=== PATIENT | female | born 1990 | race Hispanic/Latino ===

== ENCOUNTER 2021-08-19 16:01 | Outpatient (CLI) | payer OTHER | END 2021-08-19 16:02 | disposition home or self-care (01) | LOC: ULT 16:01 | PROVIDERS: ATTEND Student in an Organized Health Care Education/Training Program | DX: M79.89 Other specified soft tissue disorders (principal) ==

== ENCOUNTER 2021-08-25 13:15 | Outpatient (CLI) | payer OTHER | END 2021-08-25 13:16 | disposition home or self-care (01) | LOC: BICMAMMO 13:15 | PROVIDERS: ATTEND Student in an Organized Health Care Education/Training Program | DX: N63.25 Unspecified lump in the left breast, overlapping quadrants (principal) | CPT/HCPCS: 77066; G0279 ==